=== PATIENT | male | born 1950 | race Caucasian/White ===

== ENCOUNTER 2018-12-19 09:05 | Emergency (ER) | payer OTHER ==
[~2018-12-19] VITALS: Ht 170.1 cm; Wt 81.6 kg
--- NOTE | ~2018-12-19 | EKG ---
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
[2018-12-19 09:38] LABS: BASO # 0.1 10*3/uL (0.0-0.1); BASO % 0.9 % (0.0-1.0); EOS % 0.8 % (1.0-4.0); HEMATOCRIT 42.6 % (42.0-52.0); HEMOGLOBIN 14.5 g/dl (14.0-18.0); LYMPH # 1.1 10*3/uL (1.3-4.4); LYMPH % 20.9 % (27.0-41.0); MEAN CELL VOLUME 87.1 fl (80.0-94.0); MEAN CORPUSCULAR HGB 29.7 pg (27.0-31.0); MEAN PLATELET VOLUME 10.3 fl (9.6-12.3); MONO # 0.3 10*3/uL (0.1-1.0); MONO % 6.1 % (3.0-9.0); NEUT # 3.7 10*3/uL (2.3-7.9); NEUT % 70.5 % (47.0-73.0); PLATELET COUNT AUTOMATED 170 10*3/uL (130-400); RED BLOOD COUNT 4.89 10*6/uL (4.50-5.90); WHITE BLOOD COUNT 5.3 10*3/uL (4.8-10.8)
[2018-12-19 09:49] LABS: ALBUMIN 3.4 gm/dl (3.1-4.5); ALKALINE PHOSPHATASE 46 U/L (45-117); BUN 18 mg/dl (7-24); CHLORIDE 108 mmol/L (98-107); CREATININE 0.72 mg/dL (0.70-1.30); POTASSIUM 3.8 mmol/L (3.5-5.1); SGOT/AST 8 IU/L (3-35); SGPT/ALT 17 U/L (12-78); SODIUM 141 mmol/L (136-145); TOTAL PROTEIN 6.4 gm/dL (6.4-8.2)
[2018-12-19 09:50] LABS: TROPONIN I < 0.015 ng/ml (<0.045)
[2018-12-19] MEDS ORDERED: DELTASONE20 M1 PO (10:34)
[2018-12-19] MEDS ORDERED: VALTREX1000 MG PO (10:34)
== END 2018-12-19 10:43 | disposition home or self-care (01) ==
LOC: ED 09:05
PROVIDERS: Emergency Medicine
DX: G51.0 Bell's palsy (principal)

== ENCOUNTER → 2019-05-01 | Outpatient (CLI) | payer OTHER ==
[~2019-05-01] MED LIST: DELTASONE20 M1 PO; VALTREX1000 MG PO
== END | disposition home or self-care (01) ==
LOC: MRI 10:22
DX: I67.82 Cerebral ischemia (principal); R20.0 Anesthesia of skin; G51.0 Bell's palsy; E11.9 Type 2 diabetes mellitus without complications; M79.89 Other specified soft tissue disorders